=== PATIENT | female | born 1970 | race American Indian/Alaskan Native ===

== ENCOUNTER 2021-07-07 22:23 | Emergency (ER) | payer SELFPAY ==
[2021-07-07 23:43] VITALS: BP 138/82
[2021-07-07] MEDS ORDERED: ASPIRIN 325 MG TAB PO ONE (23:43)
--- NOTE | 2021-07-08 00:25 | XRay Report ---
CHEST 2 VIEWS INDICATION / CLINICAL INFORMATION: chestpain. COMPARISON: None available. FINDINGS: SUPPORT DEVICES: None. HEART / MEDIASTINUM: No significant abnormality. LUNGS / PLEURA: No significant pulmonary or pleural abnormality. No pneumothorax. ADDITIONAL FINDINGS: No significant additional findings. IMPRESSION: 1. No active cardiopulmonary disease. Signer Name: Craig Jalloh II, MD Signed: 07/08/2021 12:20 AM Workstation Name: [id number]
--- NOTE | 2021-07-08 00:43 | Emergency Department Report ---
ED Chest Pain HPI - General Chief Complaint: Chest Pain Stated Complaint: CHEST PAIN Source: patient, EMS Mode of arrival: Stretcher Limitations: No Limitations - History of Present Illness Initial Comments: Patient is a 51-year-old female presents emergency department complaint of chest pain. Patient states that chest pain started about 2 to 3 days ago. She states that when she stood up she felt dizzy on today. She notes a history of CHF and hypertension. She also notes family history of cardiac disease. She denies any shortness of breath nausea or vomiting. She states that her pain is left-sided her chest and sharp. It does not radiate. It is currently 4 out of 10. She is post to take aspirin Lasix, metoprolol, lisinopril states she has been out of meds due to issues with her insurance. 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 MD Complaint: chest pain - Related Data Allergies Allergy/AdvReac Type Severity Reaction Status Date / Time No Known Allergies Allergy Verified 07/08/21 00:42 Heart Score - HEART Score History: Moderately suspicious EKG: Normal Age: 45-65 Risk factors: > 3 risk factors or hx of atherosclerotic disease Troponin: < normal limit HEART Score: 4 - EKG Read Time Time EKG Completed: 23:28 EKG Read Time: 23:35 ED Review of Systems ROS: Stated complaint: CHEST PAIN Other details as noted in HPI Constitutional: denies: chills, fever Eyes: denies: eye pain, eye discharge, vision change ENT: denies: ear pain, throat pain Respiratory: denies: cough, shortness of breath, wheezing Cardiovascular: chest pain, edema. denies: palpitations, syncope Endocrine: no symptoms reported Gastrointestinal: denies: abdominal pain, nausea, diarrhea Genitourinary: denies: urgency, dysuria, discharge Musculoskeletal: denies: back pain, joint swelling, arthralgia Skin: denies: rash, lesions Neurological: denies: headache, weakness, paresthesias Psychiatric: denies: anxiety, depression Hematological/Lymphatic: denies: easy bleeding, easy bruising ED Past Medical Hx - Past Medical History Previous Medical History?: Yes Hx Hypertension: Yes Hx Congestive Heart Failure: Yes Additional medical history: obesity - Surgical History Past Surgical History?: Yes Additional Surgical History: - Social History Smoking Status: Current Every Day Smoker Substance Use Type: None ED Physical Exam - General Limitations: No Limitations General appearance: alert, in no apparent distress - Head Head exam: Present: atraumatic, normocephalic - Eye Eye exam: Present: normal appearance - ENT ENT exam: Present: mucous membranes moist - Neck Neck exam: Present: normal inspection - Respiratory Respiratory exam: Present: normal lung sounds bilaterally. Absent: respiratory distress - Cardiovascular Cardiovascular Exam: Present: regular rate, normal rhythm. Absent: systolic murmur, diastolic murmur, rubs, gallop - GI/Abdominal GI/Abdominal exam: Present: soft, normal bowel sounds - Rectal Rectal exam: Present: deferred - Extremities Exam Extremities exam: Present: normal inspection - Expanded Lower Extremity Exam Left Lower Leg exam: Present: tenderness, swelling - Back Exam Back exam: Present: normal inspection - Neurological Exam Neurological exam: Present: alert, oriented X3 - Psychiatric Psychiatric exam: Present: normal affect, normal mood - Skin Skin exam: Present: warm, dry, intact, normal color. Absent: rash ED Course Vital Signs 07/07/21 23:39 Temperature 97.8 F Pulse Rate 77 Respiratory 18 Rate Blood Pressure 138/82 O2 Sat by Pulse 100 Oximetry - Reevaluation(s) Reevaluation #1: 07/08/21 03:05 Patient leaving AMA. Discussion of risk was had. Return precautions given. ED Medical Decision Making - Lab Data Result diagrams: 07/08/21 00:33 07/08/21 00:33 - Medical Decision Making 51-year-old female here with complaint of chest pain. Patient has history of CHF hypertension and is obese. Patient has elevated heart score. ACS is considered but also pulmonary embolism or CHF exacerbation. Plan for evaluation with chest x-ray, serial EKGs and troponins, basic labs. Ultrasound of the left lower extremity has also been ordered. Patient is beginning of aspirin and morphine and pending results patient likely to be admitted for further work-up. Critical care attestation.: If time is entered above; I have spent that time in minutes in the direct care of this critically ill patient, excluding procedure time. ED Disposition Clinical Impression: Chest pain Disposition: LEFT AGAINST MEDICAL ADVICE Is pt being admited?: No Does the pt Need Aspirin: Yes Condition: Stable Instructions: Nonspecific Chest Pain, Adult Referrals: UZAIR JOHNSON MD [Primary Care Provider] - 3-5 Days Forms: AMA Form
[2021-07-08] MEDS ORDERED: MORPHINE 2 MG/1 ML INJ IV ONE (01:01)
[2021-07-08 01:05] LABS: Basophils # (Auto) 0.1 K/mm3 (0.0-0.1); Basophils % (Auto) 1.4 % (0.0-1.8); Eosinophils # (Auto) 0.2 K/mm3 (0.0-0.4); Hematocrit 40.9 % (30.3-42.9); Hemoglobin 13.4 gm/dl (10.1-14.3); Lymphocytes # (Auto) 2.6 K/mm3 (1.2-5.4); Lymphocytes % (Auto) 26.7 % (13.4-35.0); Mean Corpuscular HGB Conc 33 % (30-34); Mean Corpuscular Volume 99 fl (79-97); Platelet Count 326 K/mm3 (140-440); Red Blood Count 4.13 M/mm3 (3.65-5.03); Red Cell Distribution Width 14.5 % (13.2-15.2)
[2021-07-08 01:25] LABS: Alanine Aminotransferase 29 units/L (7-56); Albumin 3.6 g/dL (3.9-5); Blood Urea Nitrogen 18 mg/dL (7-17); Hemolysis Index 149
[2021-07-08 01:33] LABS: BUN/Creatinine Ratio 30
--- NOTE | 2021-07-09 09:03 | Electrocardiograph Report ---
[facility] Test Date: 2021-07-07 Test Time: 23:28:35 Pat Name: LEONA VILLALOBOS Department: Room: Gender: F State Editor: JOHANNE : 1970 Requested By: FREDDIE GASTELUM Order Number: [id number] Reading MD: Bert Koch Measurements Intervals [place] Rate: 77 P: 60 WA: 178 QRS: -20 QRSD: 97 T: 47 QT: 424 QTc: 480 Interpretive Statements Sinus rhythm No previous ECG available for comparison Electronically Signed On 07-09-2021 9:03:16 EDT by Bert Koch
== END 2021-07-08 06:49 | disposition left against medical advice (07) ==
LOC: ED 22:23
DX: R07.89 Other chest pain (principal); I11.0 Hypertensive heart disease with heart failure; I50.9 Heart failure, unspecified; F17.200 Nicotine dependence, unspecified, uncomplicated; Z98.890 Other specified postprocedural states
CPT/HCPCS: 36415; 71046; 80053; 83735; 83880; 84484; 85025; 85379; 93005; 96374; 99284; J2270

== ENCOUNTER 2021-10-01 03:20 | Emergency (ER) | payer SELFPAY | END 2021-10-01 05:30 | disposition left against medical advice (07) | LOC: ED 03:20 | DX: R07.89 Other chest pain (principal); Z53.21 Procedure and treatment not carried out due to patient leaving prior to being seen by health care provider ==